=== PATIENT | female | born 1970 | race Caucasian/White ===

== ENCOUNTER → 2019-08-18 09:07 | Outpatient (CLI) | payer MEDICAID | END | disposition home or self-care (01) | LOC: D.RAD 09:07 | PROVIDERS: ATTEND Nurse Practitioner Family | DX: R06.02 Shortness of breath (principal) ==

== ENCOUNTER → 2019-10-03 08:05 | Outpatient (CLI) | payer MEDICAID | END | disposition home or self-care (01) | LOC: D.MRI 08:05 | PROVIDERS: ATTEND Surgery | DX: M54.2 Cervicalgia (principal); M54.12 Radiculopathy, cervical region; G89.4 Chronic pain syndrome; Z79.891 Long term (current) use of opiate analgesic; Z79.899 Other long term (current) drug therapy ==